=== PATIENT | female | born 1990 | race Caucasian/White ===

== ENCOUNTER 2018-02-20 16:11 | Emergency (ER) | payer MEDICAID, OTHER ==
[~2018-02-20] VITALS: Ht 162.6 cm; Wt 83.0 kg
[2018-02-20 16:14] VITALS: BP 116/68
[2018-02-20] MEDS ORDERED: KETOROLAC 30 MG/1 ML ONE (16:43)
[2018-02-20] MEDS ORDERED: KETOROLAC 30 MG/1 ML IM ONE (17:00)
== END 2018-02-20 17:34 | disposition home or self-care (01) ==
LOC: ED 17:28
DX: M54.42 Lumbago with sciatica, left side (principal); G89.29 Other chronic pain
CPT/HCPCS: 72110; 96372; 99284; J1885; J7512

== ENCOUNTER 2018-04-05 09:55 | Emergency (ER) | payer OTHER ==
[~2018-04-05] VITALS: Ht 162.6 cm; Wt 80.3 kg
[2018-04-05 10:25] VITALS: BP 122/86
== END 2018-04-05 11:14 | disposition home or self-care (01) ==
LOC: ED 11:01
DX: K02.9 Dental caries, unspecified (principal)
CPT/HCPCS: 99283

== ENCOUNTER 2019-05-15 13:59 | Emergency (ER) | payer OTHER ==
[~2019-05-15] VITALS: Ht 165.1 cm; Wt 85.0 kg
[2019-05-15 14:15] VITALS: BP 116/73
[2019-05-15] MEDS ORDERED: DIAZEPAM 5 MG TABLET PO ONE (14:30)
[2019-05-15] MEDS ORDERED: KETOROLAC 30 MG/1 ML IM ONE (14:30)
[2019-05-15] MEDS ORDERED: DIAZEPAM 5 MG TABLET ONE (14:38)
[2019-05-15] MEDS ORDERED: KETOROLAC 30 MG/1 ML ONE (14:38)
--- NOTE | 2019-05-15 14:43 | NUR ---
TASK RN: PT MEDICATED PER EMAR.
[2019-05-15] MEDS ORDERED: METHOCARBAMOL 750 MG TABLET ONE (14:52)
[2019-05-15] MEDS ORDERED: METHOCARBAMOL 750 MG TABLET PO ONE (15:00)
== END 2019-05-15 15:06 ==
LOC: ED 15:00
DX: S13.4XXA Sprain of ligaments of cervical spine, initial encounter (principal); X58.XXXA Exposure to other specified factors, initial encounter; Y93.89 Activity, other specified; Y92.89 Other specified places as the place of occurrence of the external cause; Y99.8 Other external cause status
CPT/HCPCS: 72050; 96372; 99283; J1885

== ENCOUNTER 2019-07-18 17:16 | Emergency (ER) | payer OTHER ==
[~2019-07-18] VITALS: Ht 165.1 cm; Wt 85.9 kg
--- NOTE | 2019-07-18 17:29 | NUR ---
PT PRESENTED TO ED D/T SORE THROAT AND BODY ACHES SINCE YESTERDAY. PT IS FEBRILE AND TACHYCARDIC (SEE TRIAGE DOCUMENTATION). Addendum: 07/18/19 at 1730 by ANN PT PRESENTED TO ED D/T SORE THROAT AND BODY ACHES SINCE YESTERDAY. PT IS FEBRILE AND TACHYCARDIC (SEE TRIAGE DOCUMENTATION). PT STATES NO RECENT TRAVEL OR AROUND ANYONE THAT HAS BEEN POSITIVE FOR COVID-19.
[2019-07-18] MEDS ORDERED: NAPR250T6 PO (17:31)
[2019-07-18 17:32] VITALS: BP 114/69
--- NOTE | 2019-07-18 17:54 | NUR ---
PT AMBULATED TO RESTROOM WITH A STEADY GAIT.
--- NOTE | 2019-07-18 17:57 | NUR ---
PT STATING SHE WOULD LIKE TO LEAVE. RN INFORMED ERMD. TRAN TO SEE PATIENT.
--- NOTE | 2019-07-18 18:03 | NUR ---
ERMD AT BEDSIDE.
--- NOTE | 2019-07-18 18:19 | NUR ---
ERMD DISCHARGED PATIENT. DC INSTRUCTIONS WERE DICUSSED WITH PT. PT AMBULATED WITH RN TO ER DOOR. STEADY GAIT.
== END 2019-07-18 18:21 | disposition home or self-care (01) ==
LOC: ED 18:08
DX: J02.0 Streptococcal pharyngitis (principal); I10 Essential (primary) hypertension; F17.200 Nicotine dependence, unspecified, uncomplicated
CPT/HCPCS: 93005; 99283

== ENCOUNTER → 2019-12-03 | Outpatient (CLI) | payer OTHER, MEDICAID ==
[~2019-12-03] MED LIST: NAPR250T6 PO
== END | disposition home or self-care (01) ==
LOC: CVU 14:38
PROVIDERS: ATTEND Internal Medicine Cardiovascular Disease
DX: R07.89 Other chest pain (principal); Z87.891 Personal history of nicotine dependence
CPT/HCPCS: 93306; 93356